=== PATIENT | female | born 1950 | race Caucasian/White ===

== ENCOUNTER 2024-07-15 10:24 | Outpatient (CLI) | payer MEDICARE, OTHER | END 2024-07-15 10:25 | disposition home or self-care (01) | LOC: CSHMAMMO 10:24 | PROVIDERS: ATTEND Internal Medicine | DX: Z12.31 Encounter for screening mammogram for malignant neoplasm of breast (principal); M81.0 Age-related osteoporosis without current pathological fracture | CPT/HCPCS: 77063; 77067; 77080 ==